=== PATIENT | male | born 1995 | race Caucasian/White ===

== ENCOUNTER 2022-06-25 11:22 | Emergency (ER) | payer MEDICAID ==
[~2022-06-25] VITALS: Ht 172 cm; Wt 81.0 kg
[2022-06-25] MEDS ORDERED: NS IV 1000 ML 1,000 ML IV STA ×2 (11:40→13:13)
[2022-06-25] MEDS ORDERED: TETANUS,DIPTH,PERTUSS P/F (BOOSTRIX) 0.5 ML VIAL IM ONE (11:45)
[2022-06-25 11:46] LABS: BASOPHILS % (AUTO) 0 % (0-10); EOSINOPHILS % (AUTO) 0 % (0-10); HEMATOCRIT 46 % (40-54); HEMOGLOBIN 15.2 g/dL (13.3-17.7); LYMPHOCYTES # (AUTO) 1.3 10^3/uL (1.0-4.0); LYMPHOCYTES % (AUTO) 20 % (12-44); MEAN CORPUSCULAR HEMOGLOBIN 27 pg (25-34); MEAN CORPUSCULAR HGB CONC 33 g/dL (32-36); MEAN CORPUSCULAR VOLUME 82 fL (80-99); MEAN PLATELET VOLUME 10.5 fL (9.0-12.2); MONOCYTES # (AUTO) 1.3 10^3/uL (0.0-1.0); MONOCYTES % (AUTO) 20 % (0-12); NEUTROPHILS # (AUTO) 3.9 10^3/uL (1.8-7.8); NEUTROPHILS % (AUTO) 59 % (42-75); PLATELET COUNT 197 10^3/uL (130-400); WHITE BLOOD COUNT 6.5 10^3/uL (4.3-11.0)
--- NOTE | 2022-06-25 11:46 | ED General ---
General Chief Complaint: Trauma-Non Activation Stated Complaint: DIZZY / N/V / COUGH / FEVER / BODY ACHES Source of Information: Patient Exam Limitations: No Limitations History of Present Illness Date Seen by Provider: Jun 25, 2022 Time Seen by Provider: 11:44 Initial Comments Patient is a 27-year-old male who presents ED with flulike symptoms. States symptoms over the past month but became worse today with vomiting, dizziness, lightheadedness, weakness. States he has been having intermittent dizziness with a mild cough today feeling feverish with body aches today. Had a interview today where he had a 5 to 10-minute syncopal episode while sitting in the chair. States he "blacked out". Patient was brought to the ED had a syncopal episode while sitting in the chair hitting the front part of his face resulting laceration and nosebleed. Bleeding controlled. Not uptodate on his tetanus. Patient reports facial pain. States he has been feeling weak and fatigued over the past month. [place] in a [place]. Denies of any current chest pain, shortness of breath, abdominal pain, diarrhea. Decreased urine output. States he feels weak throughout. No history of stroke, heart disease, asthma. Allergies and Home Medications Allergies Coded Allergies: No Known Drug Allergies (Unverified , 06/25/22) Patient Home Medication List Home Medication List Reviewed: Yes Amoxicillin/Potassium Clav (Amox Tr-K Clv 875-125 mg Tab) 875 Mg-125 Mg Tablet, 1 EACH PO BID Prescribed by: FIORELLA TAPIA on 06/25/22 1310 Hydrocodone/Acetaminophen (Hydrocodone-Acetamin 5-325 mg) 5 Mg-325 Mg Tablet, 1 TAB PO Q4H PRN for PAIN-MODERATE (5-7) Prescribed by: FIORELLA TAPIA on 06/25/22 1310 Review of Systems Review of Systems Constitutional: No chills, No diaphoresis; dizziness, fever, malaise, weakness EENTM: mouth pain; No ear pain, No blurred vision, No double vision, No mouth swelling Respiratory: No cough, No dyspnea on exertion Cardiovascular: No chest pain Gastrointestinal: No abdominal pain; nausea, vomiting Genitourinary: decreased output Musculoskeletal: No back pain, No joint pain Skin: change in color, other (facial laceration) All Other Systems Reviewed Negative Unless Noted: Yes Physical Exam Vital Signs Vital Signs - First Documented 06/25/22 11:35 Temp 36.2 Pulse 62 Resp 16 Pulse Ox 97 O2 Delivery Room Air Capillary Refill : Height, Weight, BMI Height: '" Weight: lbs. oz. kg; BMI Method: General Appearance: No Apparent Distress, WD/WN Eyes: Bilateral Eye Normal Inspection, Bilateral Eye PERRL, Bilateral Eye EOMI HEENT: PERRL/EOMI, TMs Normal, Pharynx Normal, Other (1 cm laceration to the nasal bridge. Dried bilateral nares blood) Neck: Full Range of Motion, Normal Inspection, Non Tender, Supple Respiratory: Chest Non Tender, Lungs Clear, Normal Breath Sounds, No Accessory Muscle Use, No Respiratory Distress Cardiovascular: Regular Rate, Rhythm, No Edema, No Gallop, No JVD, No Murmur Gastrointestinal: Normal Bowel Sounds, No Organomegaly, No Pulsatile Mass Back: Normal Inspection, No CVA Tenderness, No Vertebral Tenderness Extremity: Normal Capillary Refill, Normal Inspection, Normal Range of Motion, Non Tender, No Calf Tenderness Neurologic/Psychiatric: Alert, Oriented x3, No Motor/Sensory Deficits, Normal Mood/Affect, fire sprinkler fitter II-XII Norm as Tested Skin: Other (1 cm laceration to the nasal bridge) Procedures/Interventions Wound Location: Nose Other Wound Location nasal bridge Wound Length (cm): 1 Wound's Depth, Shape: superficial Wound Explored: clean Irrigated w/ Saline (ccs): 100 Betadine Prep?: Yes Anesthesia: 1% Lidocaine Volume Anesthetic (ccs): 2 Suture: Ethlion Suture Size: 5-0 Number of Sutures: 5 Layer Closure?: 1 Sterile Dressing Applied?: Yes Progress/Results/Core Measures Suspected Sepsis SIRS Temperature: Pulse: Respiratory Rate: Laboratory Tests 06/25/22 11:30: White Blood Count 6.5 Blood Pressure / Mean: Laboratory Tests 06/25/22 11:30: Creatinine 1.26, Platelet Count 197, Total Bilirubin 0.3 Results/Orders Lab Results Laboratory Tests Test 06/25/22 11:30 06/25/22 11:57 Range/Units White Blood Count 6.5 4.3-11.0 10^3/uL Red Blood Count 5.58 H 4.30-5.52 10^6/uL Hemoglobin 15.2 13.3-17.7 g/dL Hematocrit 46 40-54 % Mean Corpuscular Volume 82 80-99 fL Mean Corpuscular Hemoglobin 27 25-34 pg Mean Corpuscular Hemoglobin Concent 33 32-36 g/dL Red Cell Distribution Width 13.3 10.0-14.5 % Platelet Count 197 130-400 10^3/uL Mean Platelet Volume 10.5 9.0-12.2 fL Immature Granulocyte % (Auto) 0 % Neutrophils (%) (Auto) 59 42-75 % Lymphocytes (%) (Auto) 20 12-44 % Monocytes (%) (Auto) 20 H 0-12 % Eosinophils (%) (Auto) 0 0-10 % Basophils (%) (Auto) 0 0-10 % Neutrophils # (Auto) 3.9 1.8-7.8 10^3/uL Lymphocytes # (Auto) 1.3 1.0-4.0 10^3/uL Monocytes # (Auto) 1.3 H 0.0-1.0 10^3/uL Eosinophils # (Auto) 0.0 0.0-0.3 10^3/uL Basophils # (Auto) 0.0 0.0-0.1 10^3/uL Immature Granulocyte # (Auto) 0.0 0.0-0.1 10^3/uL Neutrophils % (Manual) 60 % Lymphocytes % (Manual) 18 % Monocytes % (Manual) 12 % Eosinophils % (Manual) 0 % Basophils % (Manual) 0 % Band Neutrophils 10 % Blood Morphology Comment NORMAL D-Dimer 0.31 0.00-0.49 UG/ML Sodium Level 139 135-145 MMOL/L Potassium Level 3.7 3.6-5.0 MMOL/L Chloride Level 100 98-107 MMOL/L Carbon Dioxide Level 27 21-32 MMOL/L Anion Gap 12 5-14 MMOL/L Blood Urea Nitrogen 17 7-18 MG/DL Creatinine 1.26 0.60-1.30 MG/DL Estimat Glomerular Filtration Rate 81 BUN/Creatinine Ratio 13 Glucose Level 116 H 70-105 MG/DL Calcium Level 9.4 8.5-10.1 MG/DL Corrected Calcium 9.2 8.5-10.1 MG/DL Magnesium Level 1.9 1.6-2.4 MG/DL Total Bilirubin 0.3 0.1-1.0 MG/DL Aspartate Amino Transf (AST/SGOT) 26 5-34 U/L Alanine Aminotransferase (ALT/SGPT) 32 0-55 U/L Alkaline Phosphatase 92 40-136 U/L Total Creatine Kinase 104 30-200 U/L Troponin I < 0.028 <0.028 NG/ML C-Reactive Protein High Sensitivity 1.50 H 0.00-0.50 MG/DL Total Protein 7.4 6.4-8.2 GM/DL Albumin 4.3 3.2-4.5 GM/DL Thyroid Stimulating Hormone (TSH) 0.45 0.35-4.94 UIU/ML Influenza Type A (RT-PCR) Not Detected Not Detecte Influenza Type B (RT-PCR) Not Detected Not Detecte SARS-CoV-2 RNA (RT-PCR) Detected H Not Detecte My Orders Orders - BERNADINE PARR Ct Head/Maxillofacial Wo (06/25/22 11:40) Cbc With Automated Diff (06/25/22 11:40) Comprehensive Metabolic Panel (06/25/22 11:40) Hs C Reactive Protein (06/25/22 11:40) Urinalysis (06/25/22 11:40) Ekg Tracing (06/25/22 11:40) Chest 1 View, Ap/Pa Only (06/25/22 11:40) Troponin I [place] (06/25/22 11:40) Covid 19 Inhouse Test (06/25/22 11:40) Influenza A And B By Pcr (06/25/22 11:40) Ns Iv 1000 Ml (Sodium Chloride 0.9%) (06/25/22 11:40) Creatine Kinase (06/25/22 11:40) Magnesium (06/25/22 11:40) Dipht,Pertuss(Acell),Tet Adult (Boostrix (06/25/22 11:45) Thyroid Stimulating Hormone (06/25/22 11:43) Manual Differential (06/25/22 11:30) Fibrin Degradation Products (06/25/22 12:55) Drug Screen Stat (Urine) (06/25/22 13:11) Ns Iv 1000 Ml (Sodium Chloride 0.9%) (06/25/22 13:13) Medications Given in ED Current Medications Medications Dose Ordered Sig/Sheree Route Start Time Stop Time Status Last Admin Dose Admin Diphtheria/ Tetanus/Acell Pertussis 0.5 ml ONCE ONCE IM 06/25/22 11:45 06/25/22 11:46 DC 06/25/22 12:07 0.5 ML Vital Signs/I&O 06/25/22 11:35 Temp 36.2 Pulse 62 Resp 16 B/P (MAP) Pulse Ox 97 O2 Delivery Room Air Capillary Refill : ECG Comment Sinus bradycardia, 54 bpm, QRS duration 85 MS, QTc 379 MS, sinus bradycardia, possible right ventricular conduction delay. Departure Communication (PCP) Patient with no known cardiac history. Patient healthy. Reports feeling weak over the past month but worse today. 2 syncopal episode fell in the waiting room hitting his face resulting in impacted nasal bone fracture. No evidence of septal hematoma. No difficulty breathing. Did not result in a laceration with repair with 5 Ethilon sutures. Remove in 6 to 8 days. Small amount of fluid in the left maxillary sinus. Will discharge with Augmentin prophylactically. ENT outpatient follow-up. Patient was given 2 L of fluid. It appeared dehydrated. 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 Lab work was otherwise unremarkable. Negative D-dimer. CT head was unremarkable. EKG without evidence of arrhythmia. Cardiac work-up unremarkable. Lab work was reassuring. Patient feeling much better at this time. Patient with a steady gait. Patient tested positive for COVID. Unclear when his symptoms started but did report worsening symptoms today. We will can treat conservatively with anti- inflammatories at home. Discussed oral hydration. Neuro exam unremarkable. Recommend rest at home with quarantine for the next 10 days. Up-to-date as COVID. Syncopal episodes likely from dehydration. Does not have any current neuro or cardiac concerns. If worsening symptoms to return back to ED for further evaluation such as developing chest pain, difficulty breathing. Impression Primary Impression: COVID-19 Additional Impressions: Syncope Nasal bone fracture Disposition: 01 HOME, SELF-CARE Condition: Stable Departure-Patient Inst. Decision time for Depature: 13:08 Referrals: NO,LOCAL PHYSICIAN (PCP) Primary Care Physician YOUNG ACOSTA MD Patient Instructions: COVID-19 (DC), Nose Fracture ED Scripts Hydrocodone/Acetaminophen (Hydrocodone-Acetamin 5-325 mg) 5 Mg-325 Mg Tablet 1 TAB PO Q4H PRN for PAIN-MODERATE (5-7), #8 TAB Prov: BERNADINE PARR 06/25/22 Amoxicillin/Potassium Clav (Amox Tr-K Clv 875-125 mg Tab) 875 Mg-125 Mg Tablet 1 EACH PO BID for 7 Days, #14 TAB Prov: BERNADINE PARR 06/25/22 Work/School Note: Work Release Form Date Seen in the Emergency Department: Jun 25, 2022 Return to Work: Jul 04, 2022 BERNADINE PARR Jun 25, 2022 11:46
--- NOTE | 2022-06-25 11:57 | Diagnostic Imaging Report ---
INDICATION: Syncope. EXAMINATION: Portable chest at 11:40 a.m. FINDINGS: Heart size and pulmonary vascularity are normal. Lungs are clear. There are no effusions or pneumothoraces. IMPRESSION: No acute abnormalities in the chest. Dictated by: Dictated on workstation # [id number]
[2022-06-25 12:04] LABS: BAND NEUTROPHILS 10 %; BASOPHILS % (MANUAL) 0 %; EOSINOPHILS % (MANUAL) 0 %; LYMPHOCYTES % (MANUAL) 18 %; MONOCYTES % (MANUAL) 12 %; NEUTROPHILS % (MANUAL) 60 %; RBC MORPH NORMAL
[2022-06-25 12:07] LABS: ALANINE AMINOTRANSFERASE 32 U/L (0-55); ALBUMIN 4.3 GM/DL (3.2-4.5); ALKALINE PHOSPHATASE 92 U/L (40-136); BILIRUBIN,TOTAL 0.3 MG/DL (0.1-1.0); BUN/CREATININE RATIO 13; CALCIUM 9.4 MG/DL (8.5-10.1); CARBON DIOXIDE 27 MMOL/L (21-32); CHLORIDE 100 MMOL/L (98-107); CREATINE KINASE 104 U/L (30-200); CREATININE SERUM 1.26 MG/DL (0.60-1.30); GFR ESTIMATED 81; GLUCOSE 116 MG/DL (70-105); MAGNESIUM 1.9 MG/DL (1.6-2.4); POTASSIUM 3.7 MMOL/L (3.6-5.0); SODIUM 139 MMOL/L (135-145); TOTAL PROTEIN 7.4 GM/DL (6.4-8.2)
--- NOTE | 2022-06-25 12:26 | Diagnostic Imaging Report ---
PROCEDURE: CT head and maxillofacial without contrast. TECHNIQUE: Multiple contiguous axial images were obtained through the head and facial bones without the use of intravenous contrast. Auto Exposure Controls were utilized during the CT exam to meet ALARA standards for radiation dose reduction. INDICATION: Syncopal episode. Hit face and head. Bloody nose. Headache. COMPARISON: None. FINDINGS: CT head: The ventricles and cortical sulci are age-appropriate. There is no midline shift or mass-effect. No acute intracranial hemorrhage is seen. There is no CT evidence of acute territorial ischemia. No focal masses or collections are present. The calvarium is intact. CT face: Mildly impacted fracture seen involving the anterior aspect of the nasal bones. The nasal septum is midline and appears intact. Layering fluid is seen in the left maxillary sinus. The mandible, zygomatic arches, and pterygoid plates are intact. The TMJ demonstrate normal alignment. The mastoid air cells are well pneumatized. The globes and orbits are symmetric and unremarkable. No evidence of orbital rim fracture. The included upper cervical spine has a normal appearance. IMPRESSION: 1. No hemorrhage or focal intra-axial mass. No CT evidence of large acute territorial ischemia. 2. Mildly impacted fracture involving the anterior aspect of the nasal bones. 3. Small amount of fluid in the left maxillary sinus, which may relate to the nasal bone fractures. Dictated by: Dictated on workstation # [id number]
[2022-06-25] MEDS ORDERED: ACHD5005 PO (13:10)
[2022-06-25] MEDS ORDERED: AMOX1TAB12 PO (13:10)
[2022-06-25 13:55] LABS: BILIRUBIN,URINE NEGATIVE (NEGATIVE); CLARITY,URINE CLEAR; COLOR,URINE YELLOW; GLUCOSE, URINE (UA) NEGATIVE (NEGATIVE); KETONES,URINE TRACE (NEGATIVE); LEUKOCYTE ESTERASE ,URINE NEGATIVE (NEGATIVE); NITRITE,URINE NEGATIVE (NEGATIVE); PROTEIN,URINE TRACE (NEGATIVE)
[2022-06-25 14:12] LABS: BACTERIA,URINE NEGATIVE /HPF
[2022-06-25 14:17] LABS: AMPHETAMINE SCREEN, URINE NEGATIVE (NEGATIVE); BARBITURATE SCREEN URINE NEGATIVE (NEGATIVE); BENZODIAZEPINES SCREEN URINE NEGATIVE (NEGATIVE); CANNABINOID SCREEN, URINE NEGATIVE (NEGATIVE); COCAINE SCREEN URINE NEGATIVE (NEGATIVE); METHADONE STAT NEGATIVE (NEGATIVE); OPIATE SCREEN URINE NEGATIVE (NEGATIVE); OXYCODONE STAT NEGATIVE (NEGATIVE); PROPOXYPHENE STAT NEGATIVE (NEGATIVE); TRICYCLIC ANTIDEPRESSANTS SCRE NEGATIVE (NEGATIVE)
== END 2022-06-25 14:09 | disposition home or self-care (01) ==
LOC: ER 11:26
DX: R55 Syncope and collapse (principal); S02.2XXA Fracture of nasal bones, initial encounter for closed fracture; U07.1 COVID-19; Z23 Encounter for immunization; Z28.310 Unvaccinated for COVID-19; W19.XXXA Unspecified fall, initial encounter
CPT/HCPCS: 36415; 70450; 70486; 71045; 80053; 80306; 81000; 82550; 83735; 84443; 84484; 85007; 85027; 85379; 86141; 87636; 90715; 93005

== ENCOUNTER 2022-07-02 12:47 | Emergency (ER) | payer MEDICAID ==
[~2022-07-02] VITALS: Ht 175.2 cm; Wt 81.6 kg
[~2022-07-02 12:47] MED LIST: ACHD5005 PO; AMOX1TAB12 PO
[2022-07-02 13:28] VITALS: BP 111/74
== END 2022-07-02 13:28 | disposition home or self-care (01) ==
LOC: EDUNIT# 12:47 → ER 12:48
DX: Z48.02 Encounter for removal of sutures (principal); Z28.310 Unvaccinated for COVID-19